=== PATIENT | male | born 1980 | race Caucasian/White ===

== ENCOUNTER → 2019-05-08 09:50 | Outpatient (BNVA) | payer MEDICAID, SELFPAY | PROVIDERS: Family Provider Nurse Practitioner; Referring Provider Nurse Practitioner; Visit Provider Orthopaedic Surgery | DX: M79.642 Pain in left hand (principal) | CPT/HCPCS: 73130 ==

== ENCOUNTER 2023-07-30 00:29 | Emergency (ER) | payer MEDICARE, MEDICAID, SELFPAY ==
[2023-07-30 00:36] VITALS: BP 152/99; PULSE 77; RESP 16; TEMP 36.3; O2SAT 98; BMI 21.6
--- NOTE | 2023-07-30 02:00 | ED_ITS ---
HPI - Dental/Oral General: Chief complaint: Dental/Oral Stated complaint: Tooth Ache Time Seen by Provider: 07/30/23 02:00 History of Present Illness: Patient presents to the ER with complaints of right mandibular swelling. Patient has multiple bad teeth in the area. Patient was put on antibiotics approximately month ago for similar issues and that resolved but they started coming back to the last several days. Patient rates his pain a 7 out of 10. Patient is not having any problems breathing or swallowing. Patient is allergic to any medication. Review of Systems General: Reports: 10 or more systems reviewed and unremarkable except in HPI and below PFSH ED PFSH: Medical History Chronic hip pain Bipolar 1 disorder Family History Denies family history of Anesthesia complication Bleeding disorder Social History Smoking and tobacco/nicotine status: current every day tobacco/nicotine user (0.5 PPD) cigarettes Packs smoked per day: 0.5 Alcohol intake: never Substance/Drug Use: never Physical Exam Const: COMMON NORMALS: no acute distress, average body habitus, patient oriented x3, no limitations, healthy appearing, alert and well nourished HENMT: COMMON NORMALS: normocephalic, atraumatic, hearing grossly normal bilaterally, external ears normal, Normal external nose present, moist oral mucous membranes and oropharynx normal; dentition not normal (Very poor dentition throughout, right mandibular swelling no fluctuance not) HEAD & SCALP: normocephalic and atraumatic NOSE: Normal external nose present EXTERNAL EAR: Yes external ears normal Neck/C-Spine: COMMON NORMALS: full ROM, no lymphadenopathy, supple, no meningeal signs, no JVD and Thyroid normal THYROID: Thyroid normal Chest: COMMONS NORMALS: normal inspection of the chest and normal palpation of entire chest wall Resp: COMMON NORMALS: normal respiratory effort, No retractions, No use of accessory muscles and clear to auscultation bilaterally AUSCULTATION: clear to auscultation bilaterally Cardio: COMMON NORMALS: no JVD, regular rate, regular rhythm, S1 normal heart sound present, S2 normal heart sound present, No gallops present (Cardio), No clicks present (Cardio), No murmurs present (Cardio) and No rub (Cardio) RATE: regular rate RHYTHM: regular rhythm HEART SOUNDS: S1 normal heart sound present and S2 normal heart sound present GI: COMMON NORMALS: Normal to inspection, nondistended, normoactive bowel sounds present, Soft to palpation, non-tender, No hepatosplenomegaly present and no masses PALPATION: Yes Soft to palpation and Yes No hepatosplenomegaly present Neuro: COMMON NORMALS: patient oriented x3 SENSORIUM/ORIENTATION: Yes alert MENINGEAL SIGNS: Yes no meningeal signs Course Vital Signs: Vital signs: Vital Signs Temperature 97.4 F L 07/30/23 00:36 Pulse Rate 77 07/30/23 00:36 Respiratory Rate 16 07/30/23 00:36 Blood Pressure 152/99 07/30/23 00:36 Pulse Oximetry 98 07/30/23 00:36 Oxygen Delivery Me thod Room Air 07/30/23 00:36 MDM - Dental/Oral Medical Decision Making Patient has poor dentition throughout and probably has a dental infection causing his mandibular swelling. Patient was given 1 Bactrim DS and 1 tramadol here and will be sent home with a prescription for both of these. Patient is to follow-up with a dentist for definitive treatment. Differential Diagnosis Likely dental caries, toothache and dental abscess; Unlikely gingival abscess, fracture of tooth or aphthous ulcer Medical Records I reviewed the patient's medical records. Lab Data I reviewed the patient's lab results. No radiology studies performed this visit Discharge Plan Discharge Patient Disposition: Home Clinical Impression: Dental caries, Toothache Condition: Stable Prescriptions: New sulfamethoxazole-trimethoprim [Bactrim DS] 800-160 mg tablet 1 tab PO BID Qty: 14 0RF tramadol 50 mg tablet 50 mg PO Q8H PRN (Reason: pain) Qty: 14 0RF No Action amoxicillin-pot clavulanate 875-125 mg tablet 1 tab PO BID 10 Days Qty: 20 0RF Discharge Orders: Discharge ED (Routine); Ordered 07/30/23 Ordered By: Kelechi Katz Patient Instructions: Dental Caries (Cavities), Dental Abscess (ED) Activity Restrictions/Additional Instructions: Please take your pain medicine antibiotic as directed. Please follow-up with a dentist for definitive treatment. Coding Level of Care Code ED Security Systems Administrator for Diya Esposito
[2023-07-30] MEDS: TRAMadol 50 mg Tablet PO (02:28)
[2023-07-30] MEDS: sulfamethoxazole-trimeth DS 160-800 mg Tablet 1 TAB PO (02:28)
== END 2023-07-30 02:28 | disposition home or self-care (01) ==
PROVIDERS: Emergency Provider Emergency Medicine
DX: K02.9 Dental caries, unspecified (principal); F17.210 Nicotine dependence, cigarettes, uncomplicated
CPT/HCPCS: 99283